=== PATIENT | male | born 1970 ===

== ENCOUNTER 2018-08-02 17:14 | Inpatient (IN) | payer MEDICAID ==
[2018-08-02 17:15] VITALS: BMI 24.3
--- NOTE | 2018-08-02 17:57 | C.PDOC ---
History Of Present Illness Patient transferred from [facility] for alcohol detox admission. Patient is c/o feeling mild tremors as well as right clavicle pain due to recent clavicular fx. Time Seen by Provider: 08/02/18 17:48 Chief Complaint (Nursing): Substance Abuse History Per: Patient History/Exam Limitations: no limitations Onset/Duration Of Symptoms: Persistent (alcohol dependence ) Current Symptoms Are (Timing): Still Present Modifying Factor(s): Alcohol Severity: Moderate Past Medical History Reviewed: Historical Data, Nursing Documentation, Vital Signs Vital Signs: Last Vital Signs Temp 98.5 F 08/02/18 17:28 Pulse 72 08/02/18 17:28 Resp 18 08/02/18 17:28 BP 179/97 H 08/02/18 17:28 Pulse Ox 99 08/02/18 17:28 - Medical History PMH: Anxiety, Depression, Fractures, HTN Denies: Diabetes - [facility] INJECT/INFUSE NEC (11/06/14) OTHER SKIN & SUBQ I D (11/10/14) Family History: States: No Known Family Hx - Social History Hx Tobacco Use: Yes Hx Alcohol Use: Yes (2 pts bailey daily) Hx Substance Use: Yes (quit heroin 4 yr ago cocaine pot 6 yrs ago) - Immunization History Hx Tetanus Toxoid Vaccination: No Hx Influenza Vaccination: No Hx Pneumococcal Vaccination: No Review Of Systems Constitutional: Positive for: Other (right clavicle pain ). Negative for: Fever, Chills Cardiovascular: Negative for: Chest Pain Respiratory: Negative for: Shortness of Breath Gastrointestinal: Negative for: Nausea, Vomiting, Abdominal Pain, Diarrhea Psych: Positive for: Other (mild tremors) Physical Exam - Physical Exam Appears: Well, Non-toxic, In Acute Distress (in mild pain, AAOx3 ) Skin: Normal Color, Warm, Dry Head: Atraumatic, Normacephalic Oral Mucosa: Moist Chest: Other (right clavicle mild TTP with overlying surgical scar ) Cardiovascular: Rhythm Regular Respiratory: Normal Breath Sounds, No Rales, No Rhonchi, No Wheezing Gastrointestinal/Abdominal: Normal Exam, Bowel Sounds, Soft, No Tenderness Neurological/Psych: Oriented x3, Normal Speech, Normal Cognition, Other (mild tremors B/L upper extremities) ED Course And Treatment O2 Sat by Pulse Oximetry: 99 Disposition - Disposition
--- NOTE | 2018-08-02 18:10 | PCM.BM ---
<Justin Hunter - Last Filed: 08/02/18 18:09> Treatment Plan Problems - Problems identified on initial assessmt potential for alcohol withdrawal Date Initiated: 08/02/18 Time Initiated: 18:09 Status: Active Treatment assets and liabiliti Patient Assests: cognitively intact Patient Liabilities: substance abuse - Milieu Protocol Maintain good personal hygiene: daily Encourage regular showers, daily Remind patient to perform daily oral care, daily Assist patient to perform ADL's Conduct patient checks and document Observation sheet: Q15 minutes Maintain personal safety: every shift Educate patient to report safety concerns to staff, every shift Monitor environment for contraband/sharps Medication safety: Monitor for expected outcome, potential side effects: every shift, Assess barriers to learning: every shift, Assess readiness for medication education: every shift <Luis F Macias - Last Filed: 08/05/18 13:53> - Diagnosis (1) Alcohol withdrawal Status: Acute Interventions: 08/05/18 13:53 * Assess 7x/week regarding severity of withdrawal * Educate regarding risks, benefits, side effects and alternatives of medications * Use Motivational Interviewing for abstinence * Use CBT for relapse prevention * Medication management for withdrawal symptoms * Encourage medication assisted treatment * <Nguyen Ribeiro - Last Filed: 08/05/18 14:07> Family Contact Family involvement: Famliy/SO not involved - Goals for Treatment Patient goals for treatment: Complete detox and discuss aftercare options with counseling staff.
[2018-08-02] MEDS ORDERED: Aluminum Hydroxide/Magnesium Hydroxide Susp (30 mL) PO PRN (19:42)
[2018-08-03] MEDS: Multiple Vitamins Tab PO SCH (09:18)
[2018-08-04] MEDS: Multiple Vitamins Tab PO SCH (09:21)
--- NOTE | 2018-08-04 13:34 | RAD ---
Date of service: 08/04/2018 PROCEDURE: Radiographs of the Right Shoulder HISTORY: S/P Rt Clavical fracture / current c/o pain COMPARISON: No prior. FINDINGS: BONES: ORIF changes with metallic plates and screws attached to the distal clavicle and acromion. Hardware appears intact. No acute fracture dislocation. JOINTS: Acromial clavicular joint poorly delineated due to overlying fixation hardware. No significant osteoarthritis right glenohumeral joint SOFT TISSUES: Normal. OTHER FINDINGS: None. IMPRESSION: ORIF changes with metallic plates and screws attached to the distal clavicle and acromion. Hardware appears intact. No acute fracture dislocation.
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
--- NOTE | 2018-08-04 23:02 | PCM.PYCHPN ---
Psychiatric Progress Note - Psychiatric Progress Note Patient seen today, length of contact: 16 MINUTES Patient Chief Complaint: I I FELL OUT OF BED AND I THINK A SCREW CAME LOSE IN MY COLLAR BONE Problems Identified/Issues Discussed: PT SEEN AND EXAMINED DISCUSSED WITH STAFF PT HAS INCREAED PAIN WILL GET X-RAY TO MAKE SURE ORIF IS IN PLACE Medical Problems: POSSIBLE ORIF SCREW LOOSE Diagnostic Results: REVIEWED DSM 5 Symptoms Update: INSOMNIA Medication Change: Yes (ATIVAN 1 MG PO QID) Medical Record Reviewed: Yes Mental Status Examination - Cognitive Function Orientation: Person, Place, Situation, Time Memory: Intact Attention: WNL Concentration: WNL Association: WNL Fund of Knowledge: WNL - Mood Mood: Depressed - Affect Affect: Broad, Constricted - Speech Speech: Appropriate - Formal Thought Process Formal Thought Process: No Impairment - Suicidal Ideation Suicidal Ideation: No - Homicidal Ideation Homicidal Ideation: No Goal/Treatment Plan - Goal/Treatment Plan Need for Continued Stay: Severe depression anxiety, Discharge may exacerbated symptoms Progress Toward Problem(s) and Goals/Treatment Plan: SEE ABOVE Estimated Date of D/C: 08/08/18 - Smoking Cessation Smoking Cessation Initiated: No
[2018-08-05] MEDS: Multiple Vitamins Tab PO SCH (09:22)
--- NOTE | 2018-08-05 13:53 | PCM.PYCHPN ---
Psychiatric Progress Note - Psychiatric Progress Note Patient seen today, length of contact: 17 min Patient Chief Complaint: "I'm better" Problems Identified/Issues Discussed: The pt is seen, chart reviewed, case discussed with staff. The pt is compliant with medications and reports no side-effects. Symptoms are improving but needs more time to stabilize. Pt attends groups and activities. Support given, psycho-education provided. After care discussed. He wants to leave tomorrow bc of a court on Wed Medication Change: Yes (detox changes daily) Medical Record Reviewed: Yes Mental Status Examination - Cognitive Function Orientation: Person, Place, Situation, Time Memory: Intact Attention: WNL Concentration: WNL Association: WNL Fund of Knowledge: WNL - Mood Mood: Depressed - Affect Affect: Broad, Constricted - Speech Speech: Appropriate - Formal Thought Process Formal Thought Process: No Impairment - Suicidal Ideation Suicidal Ideation: No - Homicidal Ideation Homicidal Ideation: No Goal/Treatment Plan - Goal/Treatment Plan Need for Continued Stay: Severe depression anxiety, Discharge may exacerbated symptoms, Severe functional impairment Progress Toward Problem(s) and Goals/Treatment Plan: Taper with lorazepam Gabapentin for augmentation if needed As needed medications All risks, benefits and alternatives of the meds discussed, and the pt agreed and understood. Attend groups and activities Supportive therapy and psychoeducation WA for abstinence CBT for relapse prevention Encourage MAT Refer to rehab or IOP, and self-help groups Teach healthy lifestyle methods, i.e. diet, exercise, meditation Smoking cessation with WA Nicotine patch if needed Estimated Date of D/C: 08/08/18
[2018-08-06] MEDS: Multiple Vitamins Tab PO SCH (09:21)
--- NOTE | 2018-08-06 14:10 | PCM.PYCHPN ---
Psychiatric Progress Note - Psychiatric Progress Note Patient seen today, length of contact: 15 min Patient Chief Complaint: "I'm nervous a lot" Problems Identified/Issues Discussed: The pt is seen, chart reviewed, case discussed with staff. Support and psychoeducation given, CBT and HI used briefly No new symptoms reported, improving slowly and needs more time No SEs from medications, risks discussed. After care discussed Medication Change: Yes (detox changes daily) Medical Record Reviewed: Yes Mental Status Examination - Cognitive Function Orientation: Person, Place, Situation, Time Memory: Intact Attention: WNL Concentration: WNL Association: WNL Fund of Knowledge: WNL - Mood Mood: Depressed - Affect Affect: Broad, Constricted - Speech Speech: Appropriate - Formal Thought Process Formal Thought Process: No Impairment - Suicidal Ideation Suicidal Ideation: No - Homicidal Ideation Homicidal Ideation: No Goal/Treatment Plan - Goal/Treatment Plan Need for Continued Stay: Severe depression anxiety, Discharge may exacerbated symptoms, Severe functional impairment Progress Toward Problem(s) and Goals/Treatment Plan: Taper with lorazepam Gabapentin for augmentation if needed As needed medications All risks, benefits and alternatives of the meds discussed, and the pt agreed and understood. Attend groups and activities Supportive therapy and psychoeducation HI for abstinence CBT for relapse prevention Encourage MAT Refer to rehab or IOP, and self-help groups Teach healthy lifestyle methods, i.e. diet, exercise, meditation Smoking cessation with HI Nicotine patch if needed Estimated Date of D/C: 08/07/18 If changed, why: has a court tomorrow
[2018-08-06 14:20] VITALS: RESP 18
[2018-08-07 05:04] VITALS: BP 120/80; PULSE 81; TEMP 97.8; O2SAT 96
== END 2018-08-07 06:23 | disposition home or self-care (01) | DRG 772 ==
LOC: C.ER 17:14 → C.7D 17:46
PROVIDERS: ADMIT Psychiatry & Neurology Psychiatry; ATTEND Psychiatry & Neurology Psychiatry
PROC: HZ2ZZZZ Detoxification Services for Substance Abuse Treatment (ICD-10-PCS; principal; 2018-08-02)
PROC: HZ46ZZZ Group Counseling for Substance Abuse Treatment, Psychoeducation (ICD-10-PCS; 2018-08-02)
PROC: GZ3ZZZZ Medication Management (ICD-10-PCS; 2018-08-02)
PROC: HZ59ZZZ Individual Psychotherapy for Substance Abuse Treatment, Supportive (ICD-10-PCS; 2018-08-02)
DX: F10.239 Alcohol dependence with withdrawal, unspecified (principal); I10 Essential (primary) hypertension; F32.9 Major depressive disorder, single episode, unspecified; G47.00 Insomnia, unspecified; F41.9 Anxiety disorder, unspecified; F17.210 Nicotine dependence, cigarettes, uncomplicated; W06.XXXA Fall from bed, initial encounter; Y92.230 Patient room in hospital as the place of occurrence of the external cause; Z87.81 Personal history of (healed) traumatic fracture